=== PATIENT | female | born 1995 | race Caucasian/White ===

== ENCOUNTER 2020-09-06 11:48 | Emergency (ER) | payer OTHER ==
[2020-09-06 13:09] LABS: HEMOGLOBIN 13.7 gm/dl (12.3-15.3); RED BLOOD COUNT 5.07 M/UL (4.00-5.10); WHITE BLOOD COUNT 4.3 K/UL (4.5-11.0)
[2020-09-06 13:35] LABS: BUN/CREATININE RATIO 12 (0-10)
[2020-09-06] MEDS ORDERED: ZITHROMAX250 MG PO (17:50)
[2020-09-06] MEDS ORDERED: OMNICEF 300 MG300 MG PO (17:50)
[2020-09-06] MEDS ORDERED: ATROVENT-HFA12.9 GM INH (17:50)
[2020-09-06] MEDS ORDERED: ZOFRAN4 MG PO (17:50)
== END 2020-09-06 18:45 | disposition home or self-care (01) ==
LOC: ER1 11:48
PROVIDERS: Physician Assistant Medical
DX: U07.1 COVID-19 (principal); R07.9 Chest pain, unspecified; R00.0 Tachycardia, unspecified; J45.909 Unspecified asthma, uncomplicated
CPT/HCPCS: 71045; 80053; 81001; 82550; 82553; 83605; 83874; 84484; 84703; 85025; 87040; 87086; 93005; 96365; 99285; J0696; J7030; Q9967

== ENCOUNTER → 2021-01-05 | Outpatient (CLI) | payer OTHER ==
[~2021-01-05] MED LIST: ATROVENT-HFA12.9 GM INH; OMNICEF 300 MG300 MG PO; ZITHROMAX250 MG PO; ZOFRAN4 MG PO
== END ==
LOC: EXRD 14:17
DX: E04.9 Nontoxic goiter, unspecified (principal)
CPT/HCPCS: 76536